=== PATIENT | male | born 1975 | race Caucasian/White ===

== ENCOUNTER 2018-11-21 13:09 | Outpatient (CLI) | payer OTHER ==
--- NOTE | 2018-11-21 14:11 | ULT ---
ULTRASOUND SCROTUM AND TESTICLES DOPPLER DUPLEX: DATE: 11/21/2018 HISTORY: 43-year-old male with right testicular swelling TECHNIQUE: Grayscale, color-flow, and spectral analysis, of intrascrotal contents. FINDINGS: In the region of the right epididymal head, there is normal-appearing epididymal tissue that measures 1 x 0.7 cm. Broadly abutting that and extending into adjacent areas of the right scrotum, there is tissue that has multiple mildly dilated blood vessels surrounded by intermediate echogenicity tissues . There is increased blood flow associated with this, including in the mildly dilated blood vessels. No images are labeled as Valsalva, and therefore the director of land acquisition may not have perform Valsal va and release. The left epididymal head is measured as 0.8 x 0.5 cm. The right testicle measures 4.1 x 2.7 x 3.8 cm. The left testicle measures 4.4 x 2.4 x 2.97 m. Bilateral testicular echogenicity is normal with no intratesticular mass lesion. There is blood flow in both testicles demonstrated by Doppler. No moderate sized or large hydrocele. IMPRESSION: 1.) Findings in the right scrotum that could either represent varicocele or epididymitis. 2) consider follow-up scrotal and testicular ultrasound after round of antibiotic therapy, if clinica lly indicated. 3) the testicles are normal.
== END 2018-11-21 13:10 | disposition home or self-care (01) ==
LOC: BICULT 13:09
PROVIDERS: ATTEND Nurse Practitioner Family
DX: N50.89 Other specified disorders of the male genital organs (principal)
CPT/HCPCS: 76870; 93976

== ENCOUNTER 2020-08-07 13:01 | Outpatient (CLI) | payer BC | END 2020-08-07 13:02 | disposition home or self-care (01) | LOC: BICMRI 13:01 | PROVIDERS: ATTEND Nurse Practitioner Family | DX: M25.561 Pain in right knee (principal) ==